=== PATIENT | male | born 1960 | race African-American/Black ===

== ENCOUNTER 2018-12-10 11:41 | Inpatient (IN) ==
[2018-12-10] MEDS ORDERED: ASPIRIN PO ONE (11:47)
[2018-12-10 12:08] LABS: BASO# 0.02 X1000 (0.0-0.2); BASO% 0.2 % (0.0-0.8); EOS# 0.07 X1000 (0.0-0.7); EOS% 0.8 % (0.0-10.0); HEMATOCRIT 39.8 % (42.0-52.0); HEMOGLOBIN 13.8 g/dL (14.0-18.0); IMM GRAN# 0.02 X1000 (0.0-0.04); IMM GRAN% 0.2 % (0.0-0.5); LYMPH# 2.24 X1000 (1.2-3.4); LYMPH% 25.8 % (20.5-51.1); MCHC 34.7 g/dL (33-37); MCV 92.3 FL (81-99); MONO# 0.85 X1000 (0.11-0.59); MONO% 9.8 % (1.7-9.3); NEUT# 5.47 X1000 (1.4-6.5); NEUT% 63.2 % (42.2-75.2); PLT 211 X1000 (130-400); RBC 4.31 XMIL (4.7-6.1); WBC 8.67 X1000 (4.8-10.8)
[2018-12-10 12:25] LABS: INR 0.92; PROTIME 12.8 Seconds (11.0-16.0)
[2018-12-10 12:26] LABS: PTT 27.1 Seconds (22.3-41.8)
[2018-12-10 12:28] LABS: AGAP 9; ALBUMIN 3.8 g/dL (3.5-5.0); ALKALINE PHOSPHATASE 72 U/L (32-122); BUN 10 mg/dL (8-22); CALCIUM 8.9 mg/dL (8.8-10.2); CHLORIDE 105 mmol/L (98-107); CK PROFILE 119 U/L (24-204); COSMO 274; CREATININE 0.8 mg/dL (0.7-1.2); ESTIMATED GFR > 60; GLUCOSE 82 mg/dL (70-104); GOT 11 U/L (10-34); GPT 7 U/L (10-44); POTASSIUM 3.8 mmol/L (3.5-5.1); SODIUM 138 mmol/L (136-145); TCO2 24 mmol/L (25-35); TOTAL PROTEIN 6.3 g/dL (6.3-8.3)
--- NOTE | 2018-12-10 13:26 | Diag Imaging Result Doc PS360 ---
EXAM: CHEST-2 VIEWS HISTORY: CP TECHNIQUE: Chest two views COMPARISON: 12/14/2017 FINDINGS: The lungs are well expanded. The heart is not enlarged. There are sternal wires and surgical clips. The vessels are not distended. There are no infiltrates. No pleural effusions. IMPRESSION: No acute abnormality. Electronically signed by Jayce Sena 12/10/2018 1:23 PM
--- NOTE | 2018-12-10 14:49 | Diag Imaging Result Doc PS360 ---
EXAM: CT ABD/PELVIS W/IV CONT ONLY HISTORY: abd pain TECHNIQUE: CT abdomen and pelvis with intravenous contrast COMPARISON: None. FINDINGS: The gallbladder is contracted. No calcified stones. Normal liver, spleen, pancreas, and adrenal glands. There are small renal cysts. The largest measures 1.8 cm. No hydronephrosis. No aortic aneurysm. Approximate 70% stenosis to the left common iliac artery. 70-90% stenosis in the proximal left superficial femoral artery. No inflammation about the cecum. No bowel obstruction. No ascites. Urinary bladder is only mildly distended. The prostate is not enlarged. IMPRESSION: 1.Noncalcified plaque resulting in left common iliac and superficial femoral artery stenoses. 2.Renal cysts This exam was performed using automated exposure control, adjustment of mA or kV according to patient size, and/or use of iterative reconstruction technique. Electronically signed by Jayce Sena 12/10/2018 2:47 PM
[2018-12-10] MEDS ORDERED: NS 1,000 ML IV ONE (16:15)
[2018-12-10] MEDS ORDERED: NORCO-5 PO PRN (16:15)
[2018-12-10] MEDS ORDERED: TYLENOL PO PRN (16:15)
[2018-12-10] MEDS ORDERED: ZOFRAN IV PRN (16:15)
[2018-12-10] MEDS ORDERED: FLEXERIL PO SCH (17:00)
--- NOTE | 2018-12-10 17:07 | PROVIDER DOCUMENTATION ---
This chart was entered by Dalila Dangelo Scribe, acting as scribe for Chris Sanchez MD. HPI-Syncope/Dizziness - General Chief Complaint: Chest Pain Stated Complaint: CHEST PAIN Time Seen by Provider: 12/10/18 11:50 Source: patient, EMS Allergies/Adverse Reactions: Patient Allergies Allergy/AdvReac Type Severity Reaction Status Date / Time No Known Allergies Allergy Verified 12/10/18 11:59 Home Medications: Home Medication List Medication Instructions Recorded Confirmed Last Taken Type Aspirin 325 mg PO DAILY 11/15/13 12/10/18 12/24/17 08:00 History Clopidogrel Bisulfate [Plavix] 75 mg PO DAILY 04/16/17 12/10/18 12/24/17 08:00 History Fluticasone 50 Mcg Nasal [place] 1 spray KARIME DAILY 04/16/17 12/10/18 12/24/17 08:00 History [Flonase] SIMVAstatin [Zocor] 40 mg PO QHS 04/16/17 12/10/18 12/24/17 08:00 History Omeprazole [Prilosec] 40 mg PO DAILY #30 capsule. 04/17/17 12/10/18 12/24/17 08:00 Rx Carvedilol [Coreg] 3.125 mg PO BID 08/06/17 12/10/18 12/24/17 08:00 History Cyclobenzaprine [Flexeril] 10 mg PO TID #30 tab 08/06/17 12/10/18 Unknown Rx Gabapentin 300 mg PO DAILY 12/10/18 12/10/18 Unknown History Hydrocodone Bit/Acetaminophen 1 ea PO Q6H PRN PRN 12/10/18 12/10/18 Unknown History [Hydrocodon-Acetaminophn 10-325] Trazodone HCl 50 mg PO QHS PRN 12/10/18 12/10/18 Unknown History - History of Present Illness-Syncope/Dizzy Nature of Presenting Problem: Patient is a 58 year old male who presents to the ED via EMS after having a syncopal episode. EMS states patient was standing in line at a gas station and grabbed his chest then passed out. Patient states he was diaphoretic and short of breath prior to having the syncopal episode. Patient denies chest pain and shortness of breath currently. Prior Episodes: reports: single episode today Onset/Duration: reports: just prior to arrival Timing: reports: gone now Position/Activity at time of episode: reports: standing Symptoms prior to episode: reports: chest pain, diaphoresis, other (shortness of breath) Context: reports: collapsed Loss of Consciousness: unsure Location of injury. (If syncope resulted in an injury.): reports: none Current Symptoms: reports: none/feels normal Recently Seen Here or By Another Healthcare Provider: No Review of Systems - Adult - REVIEW OF SYSTEMS - ADULT Constitutional: reports: no symptoms reported. denies: chills, fever, fatique Eyes: reports: no symptoms reported Ears, Nose, Mouth & Throat: reports: no symptoms reported Cardiovascular: reports: no symptoms reported. denies: chest pain, irregular heart rate, palpitations Respiratory: reports: no symptoms reported. denies: cough, shortness of breath, wheezing Gastrointestinal: reports: no symptoms reported Genitourinary: reports: no symptoms reported Musculoskeletal: reports: no symptoms reported Integumentary: reports: no symptoms reported Neurological: reports: no symptoms reported. denies: dizziness/vertigo, headache/migraines, numbness Psychiatric: reports: no symptoms reported Endocrine: reports: no symptoms reported Hematologic/Lymphatic: reports: no symptoms reported Allergic/Immunologic: reports: no symptoms reported All Other Systems: Reviewed and Negative Past History - Adult - PAST MEDICAL HISTORY-ADULT Review of Records: reports: Nursing Assessment Review, Medications Reviewed, Social history reviewed & non-contributory. Major Childhood Illnesses: reports: denies history Cardiovascular: reports: CAD, HTN, hyperlipidemia Respiratory: reports: denies history Gastrointestinal: reports: GERD Obstetrical/Gynecological: reports: denies history Genitourinary: reports: denies history Musculoskeletal: reports: denies history, chronic pain Neurological: reports: denies history Psychiatric: reports: denies history Endocrine/Immune: reports: denies history Other Conditions: reports: denies history - PRIOR SURGERIES/PROCEDURES Surgical/Procedure History: reports: CABG, cardiac stent, orthopedic (extremity) (shoulder), other (sinus) - IMMUNIZATION STATUS Childhood Immunizations: See Nurse Assessment Flu Vaccine: See Nurse Assessment - FAMILY HISTORY Family History: reviewed, not pertinent - SOCIAL HISTORY Smoking: cigarettes, less than 1 pack/day Provider spent 3-5 mins advising pt. on dangers of tobacco.: Discussed manners to quit use, and f/u contacts for add'l counseling. Substance Use: denies Living Situation: family Physical Exam-General - PHYSICAL EXAM-ADULT Initial Vital Signs Reviewed: Yes - CONSTITUTIONAL General Appearance: alert, no apparent distress. negative: lethargic, slow to respond - RESPIRATORY Respiratory: chest non-tender, lungs clear, normal breath sounds. negative: crackles, wheezing - CARDIOVASCULAR Cardiovascular: normal peripheral pulses, bradycardia. negative: systolic murmur - GASTROINTESTINAL (ABDOMEN) Abdominal Exam: normal bowel sounds, soft, tenderness (diffuse). negative: distended, guarding - MUSCULOSKELETAL Extremity: non-tender, normal inspection. negative: deformity, erythema - SKIN Integumentary: normal color, normal turgor, warm/dry. negative: diaphoresis, ecchymosis, erythema - NEUROLOGIC Neurologic: grossly normal, no motor/sensory deficits. negative: aphasia, facial droop - PSYCHIATRIC Psych/Mental Status: normal mood/affect, oriented x 3. negative: anxious Progress - PLAN OF CARE/RESULTS Progress/Plan/Lab Results: Laboratory Results - last 24 hr 12/10/18 12/10/18 12/10/18 12:00 12:00 12:00 WBC 8.67 RBC 4.31 L Hgb 13.8 L Hct 39.8 L MCV 92.3 MCH 32.0 H MCHC 34.7 RDW Std Deviation 12.0 Plt Count 211 MPV 10.0 Immature Gran % (Auto) 0.2 Neut % (Auto) 63.2 Lymph % (Auto) 25.8 [place] % (Auto) 9.8 H Eos % (Auto) 0.8 Baso % (Auto) 0.2 Immature Gran # (Auto) 0.02 Neut # (Auto) 5.47 Lymph # (Auto) 2.24 [place] # (Auto) 0.85 H Eos # (Auto) 0.07 Baso # (Auto) 0.02 PT INR PTT (Actin FS) Sodium 138 Potassium 3.8 Chloride 105 Carbon Dioxide 24 L Anion Gap 9 BUN 10 Creatinine 0.8 Estimated GFR/1.73 m2 > 60 BUN/Creatinine Ratio 13 Glucose 82 Calculated Osmolality 274 Calcium 8.9 Total Bilirubin 0.60 AST 11 ALT 7 L Alkaline Phosphatase 72 Creatine Kinase 119 Troponin T Etx-F-Xrdqzzjcccr Pept 224 H Total Protein 6.3 Albumin 3.8 Globulin 3.0 Albumin/Globulin Ratio 2.0 12/10/18 12/10/18 12:00 12:00 WBC RBC Hgb Hct MCV MCH MCHC RDW Std Deviation Plt Count MPV Immature Gran % (Auto) Neut % (Auto) Lymph % (Auto) [place] % (Auto) Eos % (Auto) Baso % (Auto) Immature Gran # (Auto) Neut # (Auto) Lymph # (Auto) [place] # (Auto) Eos # (Auto) Baso # (Auto) PT 12.8 INR 0.92 PTT (Actin FS) 27.1 Sodium Potassium Chloride Carbon Dioxide Anion Gap BUN Creatinine Estimated GFR/1.73 m2 BUN/Creatinine Ratio Glucose Calculated Osmolality Calcium Total Bilirubin AST ALT Alkaline Phosphatase Creatine Kinase Troponin T < 0.010 Xwj-[id number]-Twiscyroelg Pept Total Protein Albumin Globulin Albumin/Globulin Ratio Orders Category Date Time Status Admit - [facility] Routine AdmDCTranf 12/10/18 15:29 Active Cardiac Monitoring DIRECTED Care 12/10/18 11:47 Completed Neurological Check Q4H Care 12/10/18 16:15 Active Saline Loc NOW Care 12/10/18 11:47 Completed Vital Signs Order Q 8-HR .ASSESS Care 12/10/18 16:15 Completed Z-Document. for Tele Applied ORDERED Care 12/10/18 16:15 Completed Heart Healthy Diet Diet 12/10/18 16:15 Active CHEST-2 VIEWS [RAD] Stat Exams 12/10/18 11:[address] ABD/PELVIS W/IV CONT ONLY [CT] Stat Exams 12/10/18 12:00 Completed CBC WITH ELECTRONIC DIFF [HEME] Stat Lab 12/10/18 12:00 Completed CK PROFILE [SP CHEM] Stat Lab 12/10/18 12:00 Completed CK PROFILE [SP CHEM] Stat Lab 12/10/18 17:40 Completed COMPREHENSIVE METABOLIC PANEL [CHEM] Stat Lab 12/10/18 12:00 Completed PRO B-NATRIURETIC PEPTIDE Stat Lab 12/10/18 12:00 Completed PROTIME WITH INR [COAG] Stat Lab 12/10/18 12:00 Completed PTT [COAG] Stat Lab 12/10/18 12:00 Completed TROPONIN T Stat Lab 12/10/18 12:00 Completed TROPONIN T Stat Lab 12/10/18 17:40 Completed 0.9% Sodium Chloride Inj [Ns] 1,000 ml Med 12/10/18 16:15 Discontinued IV 100 mls/hr Acetaminophen [Tylenol] Med 12/10/18 16:15 Active 650 mg PO Q6H PRN PRN Aspirin Med 12/11/18 09:00 Active 325 mg PO DAILY Aspirin Med 12/10/18 11:47 Discontinued 325 mg PO NOW ONE Clopidogrel [Plavix] Med 12/11/18 09:00 Active 75 mg PO DAILY Cyclobenzaprine [Flexeril] Med 12/10/18 17:00 Discontinued 10 mg PO TID Fluticasone 50 Mcg Nasal [place] [Flonase] Med 12/11/18 09:00 Active 1 spray KARIME DAILY Gabapentin [Neurontin] Med 12/11/18 09:00 Active 300 mg PO DAILY Omeprazole [Prilosec] Med 12/11/18 07:00 Active 40 mg PO DAILY@0700 Ondansetron [Zofran] Med 12/10/18 16:15 Active 4 mg IV Q4H PRN PRN SIMVAstatin [Zocor] Med 12/10/18 21:00 Active 40 mg PO QHS Trazodone [Desyrel] Med 12/10/18 21:00 Discontinued 50 mg PO QHS Oxygen Device Routine Oth 12/10/18 16:15 Completed Telemetry [OM.EQ] Routine Oth 12/10/18 16:15 Active Carotid Ultrasound Routine Ther 12/10/18 16:15 Completed EKG [EKG] Stat Ther 12/10/18 11:47 Ordered Echo Spec/Color Doppler Routine Ther 12/10/18 16:15 Ordered Transfer/Admit Order [TRANSFER] Routine Transfer 12/10/18 15:33 Completed Result Diagrams: 12/10/18 12:00 12/10/18 12:00 - EKG 1 Time of EKG reading by physician:: 11:55 EKG Read and Signed by:: Chris Sanchez EKG Interpretation (*Must complete 3 of following elements*): Abnormal Rate: 47 Rhythm: sinus bradycardia [place]: normal IN Interval: normal Comments: possible inferior infarct, age undetermined - XRAY 1 XRAY Study: Chest Impression: See EMR Report ( EXAM: CHEST-2 VIEWS HISTORY: CP TECHNIQUE: Chest two views COMPARISON: 12/14/2017 FINDINGS: The lungs are well expanded. The heart is not enlarged. There are sternal wires and surgical clips. The vessels are not distended. There are no infiltrates. No pleural effusions. IMPRESSION: No acute abnormality. Electronically signed by Jayce Sena 12/10/2018 1:23 PM 12/10/18 1323 Interpreting Physician: Jayce Sena MD Dictated Date/Time: 12/10/18 1323 cc: Chris Sanchez MD; None,PCP) - CT/MRI 1 CT Study: Abdomen, Pelvis Impression: See EMR Report ( EXAM: CT ABD/PELVIS W/IV CONT ONLY HISTORY: abd pain TECHNIQUE: CT abdomen and pelvis with intravenous contrast COMPARISON: None. FINDINGS: The gallbladder is contracted. No calcified stones. Normal liver, spleen, pancreas, and adrenal glands. There are small renal cysts. The largest measures 1.8 cm. No hydronephrosis. No aortic aneurysm. Approximate 70% stenosis to the left common iliac artery. 70-90% stenosis in the proximal left superficial femoral artery. No inflammation about the cecum. No bowel obstruction. No ascites. Urinary bladder is only mildly distended. The prostate is not enlarged. IMPRESSION: 1.Noncalcified plaque resulting in left common iliac and superficial femoral artery stenoses. 2.Renal cysts This exam was performed using automated exposure control, adjustment of mA or kV according to patient size, and/or use of iterative reconstruction technique. Electronically signed by Jayce Sena 12/10/2018 2:47 PM 12/10/18 1447 Interpreting Physician: Jayce Sena MD Dictated Date/Time: 12/10/18 1443 cc: Chris Sanchez MD; None,PCP) - CONSULTS/PCP/HOSPITALIST Notification #1 *Consult/PCP/Hospitalist*: Dr. Newton Time Discussed: 15:26 Reason/Comments: Dr. Sanchez consulted with Dr. Newton about patient. Consult Disposition: Admit Departure - Departure Date of Disposition Decision: 12/10/18 Time of Disposition Decision: 15:27 DIAGNOSIS: Syncope and collapse Disposition: ADMITTED INPATIENT 09 Certified Medical Emergency: Emergent Condition: Serious - Critical Care Note This patient required my direct & personal management of CC.: No Attestation - Physician/ OLGA Attestation The physician spent face to face time with patient:: Yes Advanced Practice Provider documentation review:: Supervising physician onsite and consulted in the evaluation and care of this patient. The physician did have a face to face encounter with the patient. This chart was documented by the indicated scribe, (Dalila Dangelo Scribe) and accurately reflects the services I performed and decisions made by me, Chris Sanchez MD, as attested by the provider's signature.
[2018-12-10] MEDS ORDERED: DESYREL PO PRN (19:35)
[2018-12-10] MEDS ORDERED: NORCO-10 PO PRN (19:35)
[2018-12-10] MEDS ORDERED: DESYREL PO SCH (21:00)
[2018-12-10] MEDS ORDERED: COREG PO SCH (21:00)
[2018-12-10] MEDS ORDERED: ZOCOR PO SCH (21:00)
[2018-12-10] MEDS: FLEXERIL PO SCH (21:10)
--- NOTE | 2018-12-10 21:17 | HISTORY AND PHYSICAL ---
PRIMARY CARE PHYSICIAN: Dr. Garcia in [place], [place]. ADMISSION DIAGNOSES: Chest pain and a syncopal episode. HISTORY OF PRESENTING ILLNESS: This is a 58-year-old, male who presents to [facility] ER via EMS after he was at a gas station standing in line and all of a sudden, grabbed his chest and then passed out. He was diaphoretic, short of breath right before the syncopal episode according to bystanders at the gas station and EMS. He currently denies any chest pain or shortness of breath. Workup in the emergency room showed cardiac enzymes. First set was negative. Chest x-ray showed no acute abnormality. We did a CT of the abdomen and pelvis that showed an approximate 70% stenosis to the left common iliac artery and 70-90% stenosis in the proximal left superficial femoral artery. Chest x-ray showed no acute abnormality. His EKG showed sinus bradycardia at 47 and he has remained bradycardic in the 50s since arriving. So, he is being admitted for further evaluation and treatment. PAST MEDICAL HISTORY: Coronary artery disease, hypertension, hyperlipidemia, GERD, chronic pain. PAST SURGICAL HISTORY: CABG, heart stent placement, shoulder surgery, and sinus surgery. FAMILY HISTORY: Reviewed and noncontributory. SOCIAL HISTORY: He currently lives with family. Smokes less than 10 cigarettes a day. Denies any alcohol or illicit drug use. ALLERGIES: He has no known drug allergies. HOME MEDICATIONS: He takes aspirin 325 mg p.o. daily, Coreg 3.125 mg p.o. b.i.d., Plavix 75 mg p.o. daily, Flexeril 10 mg p.o. t.i.d., Flonase 1 spray nasally daily, gabapentin 300 mg p.o. daily, [place] 5 mg 2 tablets p.o. q.6 hours p.r.n., Prilosec 40 mg p.o. daily, Zocor 40 mg p.o. at bedtime, and Desyrel 50 mg p.o. at bedtime. LABORATORY DATA: Showed a white blood cell count of 8.67, hemoglobin 13.8, hematocrit 39.8, platelets 211. PT and INR of 12.8 and 0.92. Sodium 138, potassium 3.8, chloride 105, CO2 of 24, BUN of 10, creatinine 0.8, glucose 82. Cardiac enzymes were negative. ProBNP of 224. Chest x- ray, no acute abnormality. CT of the abdomen and pelvis showed a noncalcified plaque resulting in the left common iliac and superficial femoral artery stenosis as mentioned earlier, and renal cyst. EKG normal sinus bradycardia at 47. REVIEW OF SYSTEMS: He denied any fever, chills, blurred vision, dizziness. He was positive for chest pain, shortness of breath. Denied any cough, abdominal pain, constipation, diarrhea, burning or hurting with urination. PHYSICAL EXAMINATION: VITAL SIGNS: On arrival, he had a temperature of 98.2, pulse of 53, respirations 20, blood pressure 136/74, saturating 100% on room air. He has remained bradycardic throughout the ER visit. The low was 46, the high was 58. HEENT: Normocephalic, atraumatic. Normal ENT inspection. Oropharynx and nares are clear. Eyes: Pupils are equal, round, reactive to light and accommodation. Extraocular movements are intact. NECK: Normal inspection, normal range of motion. LUNGS: Clear to auscultation bilaterally with equal lung expansion and chest wall movement. HEART: With regular rate and rhythm. No murmurs, rubs, or gallops. ABDOMEN: Soft, nontender, nondistended. Bowel sounds are present x4 quadrants. MUSCULOSKELETAL: He has 5/5 strength x4 extremities. NEUROLOGICAL: The cranial nerves 2-12 are grossly intact. ASSESSMENT: 1. Chest pain. 2. Syncope. 3. Bradycardia. 4. Hypertension. PLAN: He is being admitted to the medical unit. Placed on telemetry, O2 per protocol. Healthy heart diet. We are going to do a carotid ultrasound, an echocardiogram. Consult Cardiology. Do an arterial ultrasound of bilateral legs. Do a CK and troponin second set. Continue home medications as previously identified. Normal saline at 100 mL an hour. Further orders after being seen by attending and by loan consultant. Dictated by GWENDOLYN Rider for Colt Newton MD cc: GWENDOLYN Rider MD
[2018-12-11] MEDS ORDERED: PRILOSEC PO SCH (07:00)
[2018-12-11] MEDS ORDERED: NEURONTIN PO SCH ×2 (09:00→21:00)
[2018-12-11] MEDS ORDERED: PLAVIX PO SCH ×2 (09:00→21:00)
[2018-12-11] MEDS ORDERED: ASPIRIN PO SCH ×2 (09:00→21:00)
[2018-12-11] MEDS ORDERED: PLETAL PO SCH (09:00)
[2018-12-11] MEDS ORDERED: FLONASE NAS SCH (09:00)
[2018-12-11] MEDS: FLEXERIL PO SCH ×2 (09:40→16:57)
--- NOTE | 2018-12-11 15:21 | EKG Report ---
Test Performed on : 12/11/2018 08:49:16 AM Test Reason : syncope Blood Pressure : / mmHG Vent. Rate : 050 BPM Atrial Rate : 050 BPM P-R Int : 166 ms QRS Dur : 080 ms QT Int : 418 ms P-R-T Axes : 064 -06 078 degrees QTc Int : 381 ms Sinus bradycardia. Possible Inferior infarct (cited on or before 16-APR-2017) Abnormal ECG When compared with ECG of 10-DEC-2018 11:55, (Unconfirmed) No significant change was found Unconfirmed Result
[2018-12-11 15:54] VITALS: BP 111/54
--- NOTE | 2018-12-11 18:33 | EKG Report ---
Test Performed on : 12/10/2018 11:55:02 AM Test Reason : CP Blood Pressure : / mmHG Vent. Rate : 047 BPM Atrial Rate : 047 BPM P-R Int : 172 ms QRS Dur : 076 ms QT Int : 418 ms P-R-T Axes : 056 -06 066 degrees QTc Int : 369 ms Sinus bradycardia. Possible Inferior infarct (cited on or before 16-APR-2017) Abnormal ECG When compared with ECG of 14-DEC-2017 17:08, premature ventricular complexes. are no longer present Vent. rate has decreased BY 23 BPM QT has shortened Unconfirmed Result
--- NOTE | 2018-12-11 20:13 | ECHO REPORT ---
ORDER DATE: 12/10/2018 INDICATION: Previous bypass surgery, syncope, abnormal EKG. M-MODE MEASUREMENTS: Left ventricle end diastole: 4.7. Left ventricle end systole: 3.5. Posterior wall: 1.2. Interventricular septum: 1.3. Left atrium: 3.7. Aortic diameter: 3.6. SUMMARY OF 2-DIMENSIONAL IMAGIN. Left ventricular function is normal. Ejection fraction is 59%. The chamber is not dilated. There is no definite wall motion abnormality. There is a mild degree of concentric LVH. 2. The aortic valve has 3 cusps. They open normally. Color flow mapping is unremarkable. 3. The mitral valve is normal. Color flow mapping unremarkable. 4. Pulsed wave Doppler of mitral inflow is normal. 5. Tissue Doppler of septal and lateral mitral annulus averages 7 cm. 6. There is no diastolic dysfunction. 7. Pulmonary venous flow is normal. 8. The right ventricle appears to be normal. 9. The atria appear to be normal. 10.The pulmonic valve is grossly normal. 11.The tricuspid valve shows a mild degree of regurgitation. Pulmonary pressure is normal. 12.There is no pericardial effusion. No masses, no thrombus. In summary, this echocardiographic study appears to be quite unremarkable except for a mild degree of concentric LVH. Clinical correlation is recommended. cc: MD Janice Ortega CRNP
--- NOTE | 2018-12-11 21:01 | CARDIOLOGY CONSULTATION ---
DATE: 12/11/2018 CHIEF COMPLAINT: Syncope. HISTORY OF PRESENT ILLNESS: Mr. Nieto is a 58-year-old black gentleman who is normally followed by Dr. Mason Garcia at the [facility]. His primary doctor is Dr. Nai Diaz here in town. The patient says that he went to the convenience store to buy a Mountain Dew in the morning yesterday just before noontime, and the next thing he remembers he was lying on the floor, woke up and being surrounded by people. He was sweating, felt anxious. They called the ambulance and brought him to the [facility]. In the ER they checked his vital signs. His blood pressure according to records was 136/74. His pulse recorded initially was 53 beats per minute. They did an EKG on him at 11:55 in the morning, 12/10, that showed sinus bradycardia with an inferior scar and no significant abnormalities. They have done a carotid ultrasound that shows some thickening of the carotid artery; however, there is no severe stenosis. They have checked a troponin level a total of 3 times, at 12 noon, 5:40 p.m. and then at 7:35 this morning. Everything is negative. ProBNP level has been done. At the time of admission it was 224 pg/mL. The upper normal is 177, so it is minimally elevated. BUN and creatinine are normal. Sodium and potassium normal. Hemoglobin 13.8. The patient basically after admission has felt just fine. This morning he is just eating his breakfast and he has no complaints. The patient states that the day before this happened he had been more active than usual, working on his yard. He had not been drinking enough fluids. Otherwise, he just feels physically quite well. PAST MEDICAL HISTORY: Positive for severe coronary heart disease. He was found to have multivessel coronary disease, and in 07/2016 he underwent a coronary bypass procedure including mammary graft to LAD, a vein graft to diagonal, a vein graft to the PDA and then a "Y" graft to the OM1 and OM2 of the circumflex. The patient has had previous carotid ultrasound was negative. He has followed with Dr. Garcia closely. He does have hypertension. He has hyperlipidemia. PAST SURGICAL HISTORY: Besides the bypass, he has had rotator cuff surgery on the left side, right shoulder surgery, sinus surgery, and he was being scheduled or he anticipated having cervical spine surgery; however, he has postponed that. SOCIAL HISTORY: He lives by himself. He has 3 grownup children. He has 11 grandchildren. He is active. He has no limitations to do any physical activity like self-care, driving, and so forth. He is presently applying for disability. 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 He has been smoking until about a year ago or so. He has finally quit. FAMILY HISTORY: Father had a stroke and diabetes mellitus type 2. Mother is still alive. He has 2 brothers and 2 sisters who are basically healthy. MEDICATIONS: His home medications at the time of this admission included aspirin 325, carvedilol 3.125 twice a day, Plavix 75 daily, Flexeril 10 three times a day, gabapentin 200 daily, hydrocodone with acetaminophen every 6 hours, omeprazole 40 daily, simvastatin 40 at bedtime, trazodone 50 mg at bedtime. REVIEW OF SYSTEMS: Nothing really is positive. I inquired about gastrointestinal symptoms, pulmonary symptoms, cardiovascular symptoms, neurological symptoms, psychiatric symptoms, hematological symptoms, ENT, hearing and visual, genitourinary, musculoskeletal, dermatologic, immunologic, etc., etc. Nothing stands out. PHYSICAL EXAMINATION: Blood pressure right now is 113/58, temperature 91 degrees, pulse 55, respirations 18. He is awake, alert, oriented, in no distress. HEENT unremarkable. Chest clear to auscultation and percussion. There is a well-healed sternotomy scar. Heart sounds regular and rhythmic. No gallop or murmur. His abdomen is nontender, soft. No m asses. No hepatomegaly. Extremities show very good pulses. No peripheral edema. Neurologic exam is nonfocal. Moving all 4 extremities. DIAGNOSTIC DATA: During the ER stay, they did a CT of the abdomen and pelvis that showed noncalcified plaque in the left common iliac and superficial femoral artery; renal cysts. IMPRESSION: 1. Patient presenting with a syncopal episode. The reason for this could be vasodepressor syncope. Per records, we note that his ejection fraction by cardiac catheterization was normal at 55%. Because of the recent episode of coronary bypass surgery, the negative troponins and unremarkable electrocardiogram, the patient is unlikely to have suffered an ischemic event. 2. History of coronary bypass procedure x5 in 07/2016. 3. History of hypertension. 4. Sinus bradycardia, abnormal electrocardiogram. 5. Hyperlipidemia. 6. Former smoker. 7. Overweight. Body mass index is 27.5. RECOMMENDATIONS: At this time, I would suggest to obtain a followup EKG. We will review the echocardiogram that was done yesterday. If those studies are unremarkable, from my viewpoint the patient may be discharged with instructions to follow up with Dr. Mason Garcia, to probably arrange for a followup stress test and perhaps a loop recorder monitor to make sure he is not having symptomatic bradycardia. As I said, more than likely the patient may have become relatively dehydrated and that might explain his syncope. With good ejection fraction and recent bypass, the possibility of ventricular tachycardia or malignant arrhythmia are quite unlikely. Thank you for asking us to participate in his evaluation. cc: Cresencio Cosme MD
--- NOTE | 2018-12-12 14:46 | DISCHARGE SUMMARY ---
ADMISSION DATE: 12/10/2018 DISCHARGE DATE: 12/11/2018 DISCHARGE DIAGNOSES: 1. Syncope. 2. Iliac and common superficial femoral artery stenosis. 3. Coronary artery disease with atypical chest pain. Briefly, this 58-year-old male admitted on the with chest pain. He was placed in observation. Carotid ultrasound, echocardiogram was done. They did an abdominal and pelvic CT, which really did not reveal anything as far as GI pathology, but he had significant PVD on the left, and he distinctly has a left femoral bruit. PROBLEM LIST: Anyway, we ruled him out. No atypical issues on his telemetry. PLAN: Will be to discharge him today. Follow up with his insole reinforcer. Dr. Cosme saw him, and I do not have his note back yet, waiting on recommendations there, and his echocardiogram is also still pending but I think we can discharge him, follow him up with his primary insole reinforcer, Dr. Garcia, and I did not make any major adjustments in his medications. He does have PVD, and I have started Pletal because he does have complaints of pain in his left leg, and we will continue to follow closely. cc: Colt Newton MD
--- NOTE | 2018-12-14 14:57 | VASCULAR LAB ---
PROCEDURE NAME: Arterial Bilateral Legs - 12/10/2018 PROCEDURE: Bilateral lower extremity segmental Doppler exam. DROP MAN: Avinash. REQUESTING PHYSICIAN: Colt Newton MD. INDICATION: Peripheral vascular disease. FINDINGS: Brachial on the right is 130, on the left 132. High thighs bilaterally were not obtained given the patient's leg length. Low thigh on the right is 129, on the left 123. Calf on the right is 128, on the left 105. DP on the right is 130, on the left 106. PT on the right is 142, on the left 115. Toe pressure on the right is 109, on the left 84. ZAIN on the right is 1.08, on the left 0.87. TBI on the right is 0.83, on the left 0.64. FINDINGS: Relatively normal-appearing waveforms with normal ABIs in the right lower extremity. There is blunting in the left lower extremity throughout with a depressed ZAIN at 0.87. Doubtful that this would correlate to claudication or rest pain but could suggest some degree of atherosclerosis proximally, which would correlate with the previous scan that suggests a left common iliac and SFA disease. Could consider further evaluation with formal angiography runoff to the lower extremities. cc: MD Colt France MD
== END 2018-12-11 20:14 | disposition home or self-care (01) | DRG 313 ==
LOC: P.ED 11:41 → P.MEDSURG 16:02
PROVIDERS: ATTEND Internal Medicine
CPT/HCPCS: 71020; 71046; 74177; 80053; 82550; 83880; 84484; 85025; 85610; 85730; 93005; 93306; 93880; 93923; 99285; A9270; J7030; Q9967